=== PATIENT | male | born 1945 | race Caucasian/White ===

== ENCOUNTER → 2016-10-02 | Outpatient (CLI) | payer MEDICARE, OTHER ==
[~2016-10-02] MED LIST: ACET-2047 PO; ALBU8.5H5 IH; APIX5TAB PO; DESM0.2T2 PO; ESOM20CA PO; LEVO300T PO; LOSA1TAB20 PO; PRAV20TA63 PO; SOLI10TA5 PO; TEMA30CA PO
--- NOTE | 2016-10-02 12:34 | RADRPT ---
PROCEDURE: US bilateral lower extremity veins. CLINICAL INDICATION: Bilateral leg pain and swelling. TECHNIQUE: Multiple longitudinal and transverse images of the bilateral lower extremity veins were obtained with gould scale and color Doppler imaging. The common femoral vein, femoral vein, and popl iteal vein were evaluated. 2D grayscale measurements with compression sonography, color Doppler, and pulsed Doppler with augmentation. COMPARISON: 10/27/2015. FINDINGS: The bilateral common femoral, femoral and popliteal veins are normally compressible throughout. Col or flow demonstrates normal filling of the vessels. Normal waveforms are visualized and there is no rmal response to augmentation. There is a right popliteal fossa Garcia's cyst measuring 2.5 x 3.9 x 7.2 cm IMPRESSION: 1. No evidence of deep vein thrombosis involving either lower extremity. 2. Right popliteal fossa Garcia's cyst measuring 2.5 x 3.9 x 7.2 cm. 3. No change from 10/27/2015. RPTAT: QQ .Mani Nelson MD, MD Date Time Electronically viewed and signed by .Mani Nelson MD, on 10/02/2016 12:34 .R/
== END | disposition home or self-care (01) ==
LOC: VAS 11:06
PROVIDERS: ATTEND Internal Medicine
DX: I82.403 Acute embolism and thrombosis of unspecified deep veins of lower extremity, bilateral (principal); Z86.711 Personal history of pulmonary embolism
CPT/HCPCS: 93970

== ENCOUNTER → 2016-10-03 | Outpatient (CLI) | payer MEDICARE, OTHER ==
--- NOTE | 2016-10-04 11:44 | RADRPT ---
PROCEDURE: CT right foot without contrast. CLINICAL INDICATION: Evaluate malplacement of implant TECHNIQUE: CT scan of the right foot was performed on a multi -slice scanner. No IV contrast was administered. Coronal and sagittal reformatted images were obtained from the axial source images. The total exam DLP equals 317 mGy-cm. The CDTI volume was 18 mGy. Images were reviewed on a high-res olution PACS workstation. One or more of the following dose reduction techniques were used: Automated exposure control Adjustment of the mA and/or kV according to patient size. Use of iterative reconstruction technique. COMPARISON: None. FINDINGS: There is a first metatarsal arthroplasty without evidence of an acute fracture, dislocation, or angeline prosthetic fracture. The prosthesis is intact with minimal lucency of about 1-2 mm surrounding the component within the first metatarsal head. Minimal 1-2 mm lucency is also noted surrounding the im plant within the proximal phalanx. There is slight hallux valgus deformity with slight 3 mm lateral subluxation of the proximal phalanx relative to the metatarsal. There is osseous spurring and join t space narrowing at the sesamoid articulation with the first metatarsal head. Mild joint space narrowing osseous spurring is also present within the first interphalangeal joint. The remaining metatarsophalangeal joints are intact. There is mild joint space narrowing within the tarsometatarsal joints. There is also mild to moderate joint space narrowing with osseous spurring within the naviculocuneif orm, talonavicular, calcaneocuboid joints. There is mild joint space narrowing with osseous spurring within the talonavicular and subtalar joints. There are small enthesophytes within the posterior calcaneus at the insertion of the Achilles tendon . There is minimal thickening of the Achilles tendon. There is a prominent plantar calcaneal heel spur. There is slight decreased bulk of the muscles around the foot and ankle. RPTAT: TT IMPRESSION: 1. Post first metatarsal arthroplasty with minimal 1-2 mm lucency surrounding the components within the metatarsal head and proximal phalanx which can be seen with mild loosening with slight hallux v algus deformity. Degenerative changes with osseous spurring and joint space narrowing at the sesamo id articulation with the first metatarsal head which can contribute to symptoms. 2. 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 3. Prominent plantar calcaneal heel spur and Achilles enthesopathy. .Lenore Rubio MD, MD Date Time Electronically viewed and signed by .Lenore Rubio MD, MD on 10/04/2016 11:44 .T/
== END | disposition home or self-care (01) ==
LOC: C/S 14:36
PROVIDERS: ATTEND Internal Medicine
DX: M20.11 Hallux valgus (acquired), right foot (principal); M76.821 Posterior tibial tendinitis, right leg; M19.071 Primary osteoarthritis, right ankle and foot; M77.31 Calcaneal spur, right foot; M76.61 Achilles tendinitis, right leg
CPT/HCPCS: 73700

== ENCOUNTER → 2018-10-30 | Outpatient (CLI) | payer MEDICARE, OTHER ==
[~2018-10-30] MED LIST changes: +IOHEXOL 100 ML ONE; -LOSA1TAB20 PO; +LOSA1TAB25 PO; +SOD CHLORIDE 0.9% 100 ML ONE; +SOLI10TA2 PO; -SOLI10TA5 PO
== END | disposition home or self-care (01) ==
LOC: C/S 12:49
PROVIDERS: ATTEND Internal Medicine
DX: R06.02 Shortness of breath (principal)
CPT/HCPCS: 71275; 82565; 84520; Q9967